=== PATIENT | male | born 1960 | race Caucasian/White ===

== ENCOUNTER 2016-09-16 09:25 | Emergency (ER) | payer SELFPAY ==
[~2016-09-16] VITALS: Wt 91.0 kg
[~2016-09-16 09:25] MED LIST: ASPI-535 PO; METFORMIN PO
== END 2016-09-16 10:39 | disposition left against medical advice (07) ==
LOC: FTE 09:25
DX: Z53.21 Procedure and treatment not carried out due to patient leaving prior to being seen by health care provider (principal)